=== PATIENT | female | born 1995 | race Caucasian/White ===

== ENCOUNTER 2017-03-27 19:25 | Emergency (ER) | payer OTHER ==
[~2017-03-27] VITALS: Ht 160 cm; Wt 67.0 kg
[~2017-03-27 19:25] MED LIST: ACET500C5 PO; AZIT250T94 PO; ONDA4TAB8 PO
[2017-03-27 19:52] VITALS: Ht 160 cm; Wt 67.0 kg
--- NOTE | 2017-03-27 20:02 | ERD ---
ER Documentation Chief Complaint Date/Time DATE: 03/27/17 TIME: 20:01 Chief Complaint left ear pain x 3 days; fevers HPI This is a 21-year-old female presents to the emergency room for evaluation of left-sided ear pain. The patient does state that she has previous history of ear infections and states this does feel the same. The patient denies any trauma to the ear and came to the ER for evaluation. She states that she thinks she has had a fever at home. The patient is afebrile here in the emergency room ROS All systems reviewed and are negative except as per history of present illness. Medications Home Meds Active Scripts Acetaminophen* (Tylophen*) 500 Mg Capsule, 2 CAP PO Q8H Y for PAIN AND OR ELEVATED TEMP, #20 CAP Prov:LUCÍA RYAN 10/09/16 Ondansetron Hcl* (Zofran*) 4 Mg Tablet, 4 MG PO Q6H for NAUSEA AND/OR VOMITING, #30 TAB Prov:LUCÍA RYAN 10/09/16 Azithromycin* (Zithromax*) 250 Mg Tablet, 250 MG PO .ZPACK DIRECTED, #6 TAB TAKE 500 MG (2 TABS) THE FIRST DAY THEN 250 MG (1 TAB) DAYS 2-5 Prov:LUCÍA RYAN 10/09/16 Allergies Allergies: Coded Allergies: No Known Allergy (Unverified , 03/27/17) PMhx/Soc Medical and Surgical Hx: pt denies Medical Hx, pt denies Surgical Hx History of Surgery: No Anesthesia Reaction: No Hx Neurological Disorder: No Hx Respiratory Disorders: No Hx Cardiac Disorders: No Hx Psychiatric Problems: No Hx Miscellaneous Medical Probl: No Hx Alcohol Use: No Hx Substance Use: No Hx Tobacco Use: No Physical Exam Vitals Vital Signs Date Time Temp Pulse Resp B/P Pulse Ox O2 Delivery O2 Flow Rate FiO2 03/27/17 19:52 98.9 94 18 131/84 96 Physical Exam Const: No acute distress Head: Atraumatic Eyes: Normal Conjunctiva ENT: Left tympanic membrane erythematous and bulging, right tympanic membrane within normal limits normal External Ears, Nose and Mouth. Neck: Full range of motion..~ No meningismus. Resp: Clear to auscultation bilaterally Cardio: Regular rate and rhythm, no murmurs Abd: Soft, non tender, non distended. Normal bowel sounds Skin: No petechiae or rashes Back: No midline or flank tenderness Ext: No cyanosis, or edema Neur: Awake and alert Psych: Normal Mood and Affect Procedures/MDM This 21-year-old female presents to the ER for evaluation of severe pain. The patient was found to have left-sided otitis media. This patient will be discharged home at this time with a prescription for amoxicillin. She has no muscle point tenderness, no disseminated infection and appears nontoxic Departure Diagnosis: Primary Impression: Otitis media, left Condition: Stable CHELO LICONA DO March 27, 2017 20:02
[2017-03-27] MEDS ORDERED: AMO500 PO (20:03)
== END 2017-03-27 20:08 | disposition home or self-care (01) ==
LOC: E/R 19:25
DX: H66.92 Otitis media, unspecified, left ear (principal)
CPT/HCPCS: 99283